=== PATIENT | female | born 1970 | race Caucasian/White ===

== ENCOUNTER 2020-09-04 15:54 | Emergency (ER) | payer OTHER ==
[~2020-09-04] VITALS: Ht 137.2 cm; Wt 63.0 kg
[2020-09-04] MEDS ORDERED: TRAMADOL 50MG TABLET PO ONE (16:45)
[2020-09-04] MEDS ORDERED: ACETAMINOPHEN 325MG TABLET PO ONE (16:45)
[2020-09-04] MEDS ORDERED: BACITRACIN ZINC OINT UDPKT TOP ONE (17:45)
[2020-09-04] MEDS ORDERED: TOPUD MT (17:46)
[2020-09-04] MEDS ORDERED: TRAM50TA3 MT (17:46)
[2020-09-04 19:10] VITALS: BP 137/84
== END 2020-09-04 19:12 | disposition home or self-care (01) ==
LOC: ER 15:54
DX: S30.810A Abrasion of lower back and pelvis, initial encounter (principal); W18.30XA Fall on same level, unspecified, initial encounter; Y93.89 Activity, other specified; Y92.89 Other specified places as the place of occurrence of the external cause; Y99.8 Other external cause status
CPT/HCPCS: 72100; 73030; 73502; 73562; 99284

== ENCOUNTER 2020-09-07 12:10 | Emergency (ER) | payer OTHER ==
[~2020-09-07] VITALS: Ht 137.2 cm; Wt 62.0 kg
[~2020-09-07 12:10] MED LIST: TOPUD MT; TRAM50TA3 MT
[2020-09-07] MEDS ORDERED: TRAMADOL 50MG TABLET PO ONE (12:45)
[2020-09-07] MEDS ORDERED: BACITRACIN/POLYMYXIN B SULFATE OINT 15GM TOP ONE (15:45)
[2020-09-07] MEDS ORDERED: HYDR-4346 MT (16:09)
[2020-09-07] MEDS ORDERED: BO1 TP (16:09)
[2020-09-07 16:27] VITALS: BP 123/87
== END 2020-09-07 16:27 | disposition home or self-care (01) ==
LOC: ER 12:10
DX: S30.810A Abrasion of lower back and pelvis, initial encounter (principal); M25.559 Pain in unspecified hip; V03.00XA Pedestrian on foot injured in collision with car, pick-up truck or van in nontraffic accident, initial encounter; Y93.89 Activity, other specified; Y92.89 Other specified places as the place of occurrence of the external cause; Y99.8 Other external cause status
CPT/HCPCS: 71250; 99284